=== PATIENT | male | born 1955 | race Caucasian/White ===

== ENCOUNTER 2017-12-25 12:15 | Emergency (ER) | payer MEDICAID ==
[2017-12-25 12:20] VITALS: BP 189/89
[2017-12-25] MEDS ORDERED: OXYCODONE-ACETAMINOPHEN 5-325 MG TABLET PO ONE (12:35)
[2017-12-25] MEDS ORDERED: ONDANSETRON 4 MG TAB.RAPDIS PO ONE (12:35)
--- NOTE | 2017-12-25 13:13 | RADIOLOGY REPORT (SQ) ---
EXAM DESCRIPTION: SHOULDER LEFT 2 OR MORE VIEWS COMPLETED DATE/TIME: 12/25/2017 12:58 pm REASON FOR STUDY: fell on left shoulder COMPARISON: None. NUMBER OF VIEWS: Three views left shoulder. LIMITATIONS: None. FINDINGS: There is no acute or significant bone, joint or soft tissue abnormality. OTHER: No other significant finding. IMPRESSION: NORMAL STUDY. TECHNICAL DOCUMENTATION: JOB ID: [id number] Reading location - IP/workstation name: [email or web address]
--- NOTE | 2017-12-25 13:19 | ER Document Report ---
HPI - HPI Patient complains to provider of: left shoulder pain Onset: Yesterday Pain Level: 4 Context: 62 yo male slipped and Fell in the pool injury right shoulder. Associated Symptoms: None Exacerbated by: Movement Relieved by: Denies Similar symptoms previously: No Recently seen / treated by doctor: No - ROS ROS below otherwise negative: Yes Systems Reviewed and Negative: Yes All other systems reviewed and negative - MUSCULOSKELETAL Musculoskeletal: REPORTS: Extremity pain - left shoulder Past Medical History - General Information source: Patient - Social History Smoking Status: Unknown if Ever Smoked Chew tobacco use (# tins/day): No Frequency of alcohol use: Social Drug Abuse: None Lives with: Spouse/Significant other Family History: Reviewed & Not Pertinent Patient has suicidal ideation: No Patient has homicidal ideation: No - Past Medical History Cardiac Medical History: Reports: Hx Heart Attack, Hx Hypertension Renal/ Medical History: Reports: Hx Kidney Stones. Denies: Hx Peritoneal Dialysis Past Surgical History: Reports: Hx Appendectomy - Immunizations Hx Diphtheria, Pertussis, Tetanus Vaccination: Yes Vertical Provider Document - CONSTITUTIONAL Agree With Documented VS: Yes Exam Limitations: No Limitations General Appearance: No Apparent Distress - INFECTION CONTROL TRAVEL OUTSIDE OF THE [place] IN LAST 30 DAYS: No - NECK Neck: Supple - MUSCULOSKELETAL/EXTREMETIES Musculoskeletal/Extremeties: MAEW, FROM, Tender - over left deltoid and posterior shoulder. negative: Eccymosis - NEURO Level of Consciousness: Awake Motor/Sensory: No Motor Deficit, No Sensory Deficit Course - Re-evaluation Re-evalutation: 12/25/17 xray negative per rad - Vital Signs Vital signs: Temp Pulse Resp BP Pulse Ox 97.9 F 75 20 189/89 H 96 12/25/17 12:19 12/25/17 12:19 12/25/17 12:19 12/25/17 12:19 12/25/17 12:19 Procedures - Immobilization Left Arm Time completed: 13:25 Pre-Proc Neuro Vasc Exam: Normal Immobilizer type: Sling Performed by: PCT Post-Proc Neuro Vasc Exam: Normal Alignment checked and good: Yes Discharge - Discharge Clinical Impression: Left shoulder contusion Condition: Good Disposition: HOME, SELF-CARE Instructions: Contusion ([facility]), Ibuprofen (General) ([facility]), Oral Narcotic Medication ([facility]), Sling to be Used ([facility]), Warm Packs ([facility]) Additional Instructions: Warm compress Sling Gentle range of motion to the shoulder so you do not get frozen shoulder Follow-up orthopedics Prescriptions: Ibuprofen [Motrin 800 mg Tablet] 800 mg PO Q8HP PRN #30 tablet PRN Reason: Referrals: CELESTE CHOW MD [ACTIVE STAFF] - Follow up as needed
== END 2017-12-25 13:33 | disposition home or self-care (01) ==
LOC: ER 12:15
DX: S40.012A Contusion of left shoulder, initial encounter (principal); W17.89XA Other fall from one level to another, initial encounter; Y93.89 Activity, other specified; I10 Essential (primary) hypertension
CPT/HCPCS: 99283; 73030; S0119